=== PATIENT | female | born 1945 | race Caucasian/White ===

== ENCOUNTER 2019-04-03 06:39 | Observation (INO) | payer MEDICARE, BC ==
[2019-04-03] MEDS ORDERED: NS 0.9% 1000 ML** 1,000 ML IV ONE (06:45)
[2019-04-03 07:01] LABS: Hematocrit 35 % (35-47); Hemoglobin 11.6 g/dL (12.0-16.0); Mean Corpuscular HGB Conc 34 g/dL (31-36); Mean Corpuscular Hemoglobin 32 pg (27-31); Mean Corpuscular Volume 95 fL (80-97); Mean Platelet Volume 8.2 fL (7.4-10.4); Platelet Count 264 10^3/uL (150-450); Red Blood Count 3.66 10^6 /uL (3.70-4.87); Red Cell Distribution Width 14 % (10-15)
[2019-04-03] MEDS ORDERED: Ondansetron INJ* 2 MG/ML VIAL IV ONE (07:02)
[2019-04-03 07:09] LABS: INR 3.82 (0.82-1.09)
[2019-04-03 07:20] LABS: Albumin 3.1 g/dL (3.2-5.2); Albumin/Globulin Ratio 1.6 (1-3); BUN/Creatinine Ratio 14.5 (8-20); Calcium 8.6 mg/dL (8.6-10.3); EGFR Non-African American 42.2 (>60); Total Bilirubin 0.4 mg/dL (0.2-1.0); Total Protein 5.1 g/dL (6.4-8.9)
[2019-04-03 07:29] LABS: ABS Eosinophils 0.1 10^3/ul (0-0.6); ABS Lymphocytes 7.8 10^3/ul (1.0-4.8); ABS Monocytes 0.5 10^3/ul (0-0.8); ABS Neutrophils 2.6 10^3/ul (1.5-7.7); ABS Nucleated RBC 0.1 10^3/ul; Eosinophil % 1.3 %; Lymphocyte % 70.3 %; Nucleated Red Blood Cells % 0.6
[2019-04-03 10:26] LABS: ABS Lymphocytes 4.6 10^3/ul (1.0-4.8); ABS Monocytes 0.5 10^3/ul (0-0.8); ABS Neutrophils 5.4 10^3/ul (1.5-7.7); Eosinophil % 0.2 %; Hematocrit 33 % (35-47); Hemoglobin 11.1 g/dL (12.0-16.0); Lymphocyte % 43.6 %; Mean Corpuscular HGB Conc 34 g/dL (31-36); Mean Corpuscular Hemoglobin 32 pg (27-31); Mean Corpuscular Volume 94 fL (80-97); Mean Platelet Volume 8.2 fL (7.4-10.4); Nucleated Red Blood Cells % 0.3; Platelet Count 244 10^3/uL (150-450); Red Blood Count 3.46 10^6 /uL (3.70-4.87); Red Cell Distribution Width 13 % (10-15); White Blood Count 10.5 10^3/uL (3.5-10.8)
--- NOTE | 2019-04-03 11:10 | ED ---
Lower Extremity - HPI Summary HPI Summary: This patient is an otherwise healthy 73-year-old female presenting to the ED with severe/acute blood loss. Patient called ambulance this morning after noticing a large pool of blood on her floor coming from a medial ankle ulcer which has been present times approximately 30-40 years. Patient states she has had a graft over the area which lasted approximately 20 years. Patient has not followed up with surgery for another graft. She states the area has been bleeding more frequently now, with the last major bleed one month ago. Her and her were able to stop the bleed at home and this did not require coming to the ED or hospitalization. Patient is on Coumadin for previous blood clot and last INR 3.6. She did not hold her coumadin. On Coumadin for a DVT following childbirth 40 years ago. Has been on this medication since, as she developed a subsequent DVT in the same area. Multiple dopplers since show no changes. She has been seen at [facility] for wound care since 2009, since her ankle graft failed and her ankle continued to "bust open." She states this ended around 2012. She has seen Dr. Scott, but has not seen a surgeon. The area has worsened in the last 1 mo, with today being the worst, unable to stop bleeding. Currently on 5mg Coumadin daily. Per EMS, pt had lost approx 1-1.5L of blood. Area was not currently bleeding on EMS arrival. Pt was pale, nauseous and BP in the 80's. - History of Current Complaint Chief Complaint: EDExtremityLower Stated Complaint: ANKLE ULCER PER EMS Time Seen by Provider: 04/03/19 06:44 Hx Obtained From: Patient, Family/Top Frame Fitter Mechanism Of Injury: Other - no injury Severity Initially: Severe Severity Currently: Mild Pain Intensity: 0 Pain Scale Used: 0-10 Numeric Location: Is Discrete @ - medial L ankle with 3x1 ulcer Associated Signs And Symptoms: Positive: Dizziness. Negative: Swelling, Redness , Bruising Aggravating Factor(s): Standing - standing re-opens wound, Ambulation Able to Bear Weight: Yes - Allergies/Home Medications Allergies/Adverse Reactions: Allergies Allergy/AdvReac Type Severity Reaction Status Date / Time No Known Allergies Allergy Verified 04/03/19 07:03 PMH/Surg Hx/FS Hx/Imm Hx Previously Healthy: Yes - Immunization History Hx Pertussis Vaccination: No Immunizations Up to Date: Yes Infectious Disease History: No Infectious Disease History: Denies: Traveled Outside the [place] in Last 30 Days - Social History Occupation: Unemployed Lives: With Family Alcohol Use: None Hx Substance Use: No Substance Use Type: Reports: None Smoking Status (MU): Never Smoked Tobacco Review of Systems Positive: Fatigue. Negative: Fever, Chills, Skin Diaphoresis Negative: Palpitations, Chest Pain Negative: Shortness Of Breath, Cough Genitourinary: Negative Positive: no symptoms reported, see HPI Negative: Arthralgia, Myalgia Positive: Other - 3x1cm ulceration to the medial L ankle Neurological: Negative All Other Systems Reviewed And Are Negative: Yes Physical Exam Triage Information Reviewed: Yes Vital Signs On Initial Exam: Initial Vitals Pulse Resp BP Pulse Ox 75 27 111/83 97 04/03/19 06:43 04/03/19 06:43 04/03/19 06:43 04/03/19 06:43 Appearance: Positive: Ill-Appearing Skin: Positive: Dry, Pale Head/Face: Positive: Normal Head/Face Inspection Eyes: Positive: EOMI, Conjunctiva Clear Neck: Positive: Supple Respiratory/Lung Sounds: Positive: Clear to Auscultation, Breath Sounds Present Cardiovascular: Positive: Tachycardia Musculoskeletal: Positive: Normal, Strength/ROM Intact Neurological: Positive: Speech Normal Psychiatric: Positive: Normal, Affect/Mood Appropriate AVPU Assessment: Alert Procedures - Sedation Patient Received Moderate/Deep Sedation with Procedure: No Diagnostics - Vital Signs Vital Signs Temp Pulse Resp BP Pulse Ox 04/03/19 10:57 97.3 F 90 19 131/76 95 04/03/19 10:43 81 17 131/76 93 04/03/19 10:13 74 16 115/65 95 04/03/19 10:00 77 20 95 04/03/19 09:44 78 18 105/50 93 04/03/19 09:13 71 17 122/76 95 04/03/19 09:00 70 21 96 04/03/19 08:43 68 14 108/58 94 04/03/19 08:13 72 17 112/60 92 04/03/19 08:00 70 18 90 04/03/19 07:43 71 19 115/77 99 04/03/19 07:14 77 13 140/91 100 04/03/19 07:00 77 20 100 04/03/19 06:56 97.5 F 04/03/19 06:48 80 20 97 04/03/19 06:44 0 F 78 14 111/83 97 04/03/19 06:43 75 27 111/83 97 - Laboratory Lab Results: Lab Results 04/03/19 04/03/19 04/03/19 Range/Units 06:52 06:53 06:53 WBC 11.0 H (3.5-10.8) 10^3/uL RBC 3.66 L (3.70-4.87) 10^6 /uL Hgb 11.6 L (12.0-16.0) g/dL Hct 35 (35-47) % MCV 95 (80-97) fL MCH 32 H (27-31) pg MCHC 34 (31-36) g/dL RDW 14 (10-15) % Plt Count 264 (150-450) 10^3/uL MPV 8.2 (7.4-10.4) fL Neut % (Auto) 23.6 % Lymph % (Auto) 70.3 % Barber % (Auto) 4.3 % Eos % (Auto) 1.3 % Baso % (Auto) 0.5 % Absolute Neuts (auto) 2.6 (1.5-7.7) 10^3/ul Absolute Lymphs (auto) 7.8 H (1.0-4.8) 10^3/ul Absolute Monos (auto) 0.5 (0-0.8) 10^3/ul Absolute Eos (auto) 0.1 (0-0.6) 10^3/ul Absolute Basos (auto) 0.0 (0-0.2) 10^3/ul Absolute Nucleated RBC 0.1 10^3/ul Nucleated RBC % 0.6 Hem Pathologist Commnt Pending INR (Anticoag Therapy) 3.82 H (0.82-1.09) APTT 44.0 H (26.0-38.0) seconds Sodium 142 (135-145) mmol/L Potassium 4.0 (3.5-5.0) mmol/L Chloride 112 H (101-111) mmol/L Carbon Dioxide 24 (22-32) mmol/L Anion Gap 6 (2-11) mmol/L BUN 18 (6-24) mg/dL Creatinine 1.24 H (0.51-0.95) mg/dL Est GFR ( Amer) 51.0 (>60) Est GFR (Non-Af Amer) 42.2 (>60) BUN/Creatinine Ratio 14.5 (8-20) Glucose 172 H (70-100) mg/dL Calcium 8.6 (8.6-10.3) mg/dL Total Bilirubin 0.40 (0.2-1.0) mg/dL AST 13 (13-39) U/L ALT 9 (7-52) U/L Alkaline Phosphatase 50 (34-104) U/L Total Protein 5.1 L (6.4-8.9) g/dL Albumin 3.1 L (3.2-5.2) g/dL Globulin 2.0 (2-4) g/dL Albumin/Globulin Ratio 1.6 (1-3) Blood Type Antibody Screen 04/03/19 04/03/19 Range/Units 06:53 10:19 WBC 10.5 (3.5-10.8) 10^3/uL RBC 3.46 L (3.70-4.87) 10^6 /uL Hgb 11.1 L (12.0-16.0) g/dL Hct 33 L (35-47) % MCV 94 (80-97) fL MCH 32 H (27-31) pg MCHC 34 (31-36) g/dL RDW 13 (10-15) % Plt Count 244 (150-450) 10^3/uL MPV 8.2 (7.4-10.4) fL Neut % (Auto) 51.1 % Lymph % (Auto) 43.6 % Barber % (Auto) 4.9 % Eos % (Auto) 0.2 % Baso % (Auto) 0.2 % Absolute Neuts (auto) 5.4 (1.5-7.7) 10^3/ul Absolute Lymphs (auto) 4.6 (1.0-4.8) 10^3/ul Absolute Monos (auto) 0.5 (0-0.8) 10^3/ul Absolute Eos (auto) 0.0 (0-0.6) 10^3/ul Absolute Basos (auto) 0.0 (0-0.2) 10^3/ul Absolute Nucleated RBC 0.0 10^3/ul Nucleated RBC % 0.3 Hem Pathologist Commnt INR (Anticoag Therapy) (0.82-1.09) APTT (26.0-38.0) seconds Sodium (135-145) mmol/L Potassium (3.5-5.0) mmol/L Chloride (101-111) mmol/L Carbon Dioxide (22-32) mmol/L Anion Gap (2-11) mmol/L BUN (6-24) mg/dL Creatinine (0.51-0.95) mg/dL Est GFR ( Amer) (>60) Est GFR (Non-Af Amer) (>60) BUN/Creatinine Ratio (8-20) Glucose (70-100) mg/dL Calcium (8.6-10.3) mg/dL Total Bilirubin (0.2-1.0) mg/dL AST (13-39) U/L ALT (7-52) U/L Alkaline Phosphatase (34-104) U/L Total Protein (6.4-8.9) g/dL Albumin (3.2-5.2) g/dL Globulin (2-4) g/dL Albumin/Globulin Ratio (1-3) Blood Type B Positive Antibody Screen Negative Result Diagrams: 04/03/19 10:19 04/03/19 06:53 Lab Statement: Any lab studies that have been ordered have been reviewed, and results considered in the medical decision making process. Re-Evaluation - Re-Evaluation First Eval Change: Improved - pt feeling better physically, wound opened and continues to bleed when dependent Second Eval Change: Worse - re-wrapped with coban, surgicel and TXA - re-opened and bled 100cc's Third Eval Change: Improved - with elevation - no bleeding present Lower Extremity Course/Dx - Course Course Of Treatment: On arrival into the ED, the patient appears ill. States she feels nauseous, is very pale, but still alert and oriented. Arrival into the ED, temp was obtained and continues to be orally and temporarily hovering at 85. Rectal temp shows 97.5. She was warmed with blankets. Medial ankle shows a 3 cm in length and approximately 1 cm in width ulceration which is not currently bleeding. .3-.4cm depth. Occlusive gauze wrapped and coban applied. Recheck after 2 hours, continues not to bleed. Pt up to the bathroom, and approximately 100cc out of the wound. Quickly redressed and TXA with surgicel applied gauze and coban wrapped. Discussed with attendings Dr. Mcdaniel and Dr. Key. Recommended recheck and occlusive gauze with a recheck in 30 minutes after tight wrap. Immediately, when patient becomes dependent, the wound begins to bleed. Only ceases with elevation of the extremity. Patient concern for going home as she continues to have bleeding if dependent. Patient was given 2 L fluids and labs obtained. Labs show an H&H of 3.66 and 11.6 respectively. Patient continued to improve hemodynamically over the course of several hours and feels much better physically. H&H was rechecked at a 4 hour sinai which shows an H&H of 3.46 at 11.1. This with no significant drop. Patient is feeling well. However, d/t continuing bleeding, admission was recommended. Vitamin K ordered. - Diagnoses Differential Diagnosis/HQI/PQRI: Positive: Osteomyelitis, Other Provider Diagnoses: Bleeding from wound, Foot ulcer - Physician Notifications Discussed Care Of Patient With: Daniela Schaffer Instructed by Provider To: Admit As Inpatient - Critical Care Time Critical Care Time: 30-74 min Discharge ED - Sign-Out/Discharge Documenting (check all that apply): Patient Departure - Discharge Plan Condition: Stable Disposition: ADMITTED TO [facility] Referrals: Santi Scott MD [Medical Doctor] - No Primary Care Phys,NOPCP [Primary Care Provider] - Donte Guerra MD [Medical Doctor] - Additional Instructions: Please follow up with your PCP promptly Return to the ED for any bleeding - Billing Disposition and Condition Condition: STABLE Disposition: Admitted to [facility]
[2019-04-03] MEDS ORDERED: Tranexamic Acid 1,000 MG/10 ML SDV TOPICAL ONE (11:34)
[2019-04-03] MEDS ORDERED: Phytonadione IV (Adult)* 10 MG/ML 1 ML AMP IV ONE (12:54)
[2019-04-03] MEDS ORDERED: Al Hydrox/Mg Hydrox/Simet LIQ* 30 ML UDC PO PRN (13:28)
[2019-04-03] MEDS ORDERED: Acetaminophen TAB* 325 MG PO PRN (13:28)
[2019-04-03] MEDS ORDERED: Phytonadione IV (Adult)* 5 MG in NS 0.9% 50 ML* 50 ML IV ONE (13:45)
--- NOTE | 2019-04-03 15:39 | HP ---
CC: NANCI Miranda; Dr. Huston * HISTORY AND PHYSICAL: DATE OF ADMISSION: 04/03/19 PRIMARY CARE PROVIDER: NANCI Miranda. CHIEF COMPLAINT: Left leg ulcer bleeding. 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 The patient stated that sometime in the , the skin graft "did not work anymore". Since then, she has had a chronic wound there that was last seen by a provider in 2012 by wound care in [facility]. The patient states that since then she has been taking care of it herself. Sometimes, it was open, but it never appeared to be infected and she never had any major issues with that wound. Due to her history of recurrent DVTs, she had been also on Coumadin ever since . She had been on a dose of 5 mg daily of Coumadin for several years, but in the past month, it was noted that her INR was around 1.5 and her Coumadin dose was increased to 7.5 mg dose once weekly in addition to 5 mg doses all the other remaining days of the week. Once her dose was increased, her INR went up to 3.5 a week ago and at that point , her Coumadin dosing was adjusted back to 5 mg daily. Despite that, 3 days after the adjustment of the Coumadin dose, the patient's INR is still supratherapeutic and is slightly higher. The patient states that in the morning , she was dabbing her left foot ulcer, started bleeding uncontrollably. By the EMT providers, the patient had a "liter of blood" on the floor when they arrived. She came in to the ED for evaluation. Here, she had a compressive dressing applied. She was observed, appears to feel back to her baseline with not really remarkable blood work and she was about to go home but when she stood up, her bleeding from her left foot ulcer recurred. That had to be re- dressed with a pressure dressing again and at that point, the ED provider asked medicine service to come and see the patient for evaluation or admission. The patient is going to be placed on overnight observation with diagnosis of bleeding left foot ulcer. PAST MEDICAL HISTORY: 1. Recurrent DVT of the left leg. 2. Left medial malleolus venous stasis ulcer status post skin graft that failed several years ago and chronic wound afterwards. 3. Status post right inguinal hernia repair. 4. History of peripheral vascular disease. 5. History of recurrent DVTs, currently on Coumadin. MEDICATIONS: Coumadin 5 mg daily. ALLERGIES: No known drug allergies. SOCIAL HISTORY: The patient has history of smoking most of her adult life, she quit in 2001. She smoked a pack per day for over 30 years. She denies any alcohol or drug use. She is retired, lives with her who is her surrogate. FAMILY HISTORY: Positive for mother who in her 70s of [place], but also had a history of bone cancer and father who at the age of 67 secondary to leukemia. REVIEW OF SYSTEMS: Please see history of present illness. In addition to the above mentioned, the patient denies specifically any problems with skin infection and the wound recently draining. She denies any problems with weight gain or loss and no recent illnesses were reported. All the remaining 12 systems were reviewed with the patient and were otherwise negative. PHYSICAL EXAMINATION GENERAL: The patient is a pleasant 73-year-old female who is in no acute distress. The patient alert and oriented x3. VITAL SIGNS: Blood pressure of 124/68, heart rate of 118 and regular, respiratory rate 19, oxygen saturation 93% on room air, temperature 97.3. HEENT: Head: Atraumatic, normocephalic. Eyes: Pupils are equal, reactive to light and accommodation. Oropharynx clear. Mucosa moist. NECK: Supple. No JVD. No bruits bilaterally. RESPIRATORY: Clear to auscultation bilaterally. CARDIOVASCULAR: Regular rate and rhythm. No murmur. ABDOMEN: Soft, nontender. Bowel sounds present in all 4 quadrants. EXTREMITIES: There is no edema. Pulses are +1 bilaterally. There is no clubbing, no cyanosis. The left foot is wrapped in compression dressings that were not removed for the evaluation due to the patient just re-bleeding within minutes prior to my evaluation and the dressing being reapplied by the ED provider. As the ED provider's description, the wound is crescent like, overlying the left medial malleolus approximately 4 cm in length, not infected, actively bleeding. NEURO EVALUATION: Speech clear. Cranial nerves II through XII grossly intact. Motor strength is 5/5 bilaterally. LABORATORY DATA: White blood cell count of 10.5, hemoglobin 11.1, hematocrit 33 , and platelets 244. INR 3.8. Sodium 142, potassium 4.0, chloride 112, carbon dioxide 24, BUN 18, creatinine 1.24. Liver function tests were unremarkable. ASSESSMENT AND PLAN: 1. A 73-year-old female with history of peripheral vascular disease and recurrent deep vein thromboses who has now supratherapeutic INR and uncontrollably bleeding ulcer in the left foot. At this point, the bleeding appears to have been controlled after the dressing was reapplied by the ED provider. The patient is going to be placed on overnight observation to observe for recurrent bleeding. I am unsure if the patient has suffered significant blood loss because I do not have any medical records of the patient' s recent CBC. Her hemoglobin is slightly lower than normal. Due to active bleeding, the patient's INR is going to be reversed with vitamin K IV and that already was ordered in the ED. I will continue the dressing until tomorrow morning when we remove it for reevaluation. We will also obtain another INR in the morning. At this point, it would be great if the INR is at 2 or below 2. I had also discussed with the patient that we will hold Coumadin for tomorrow and to restart it on Thursday with a dose of 5 mg daily. 2. For DVT prophylaxis, as mentioned above, the patient has supratherapeutic INR at this point and uncontrollable bleeding. 3. The patient's code status is full. Her surrogate is her . TIME SPENT: Approximately 62 minutes was spent on admission of this patient, more than half of that time was spent [id number] with the patient during the interview and physical exam. [id number]/[facility] #: [id number] [facility] MEDICAL CENTERBalta
[2019-04-04 06:34] LABS: INR 1.35 (0.82-1.09)
[2019-04-04 13:02] VITALS: BP 154/79
--- NOTE | 2019-04-04 21:03 | DS ---
DISCHARGE SUMMARY: DATE OF ADMISSION: 04/03/19 DATE OF DISCHARGE: 04/04/19 ADMITTING PHYSICIAN: Dr. Schaffer.* (DICTATED BY IZABEL ROD NP) PRIMARY CARE PROVIDER: Dr. Huston. PRIMARY DIAGNOSIS: Supratherapeutic international normalized ratio with associated bleeding of left lower extremity ulcer. SECONDARY DIAGNOSES: 1. History of peripheral vascular disease. 2. History of recurrent deep venous thrombosis, currently on Coumadin. 3. Left medial malleolar venous stasis ulcer, status post skin graft that failed several years ago and is now chronic wound. 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 Due to her history of recurrent DVTs, she has also been on Coumadin ever since the . She had been on a dose of 5 mg of Coumadin daily for several years but in this past month, it was noted that her INR was around 1.5 and her Coumadin dose was increased to 7.5 mg once weekly in addition to the usual 5 mg doses. Once her dose was increased, her INR went up to 3.5 a week ago and at that point, she was adjusted back to the 5 mg dose daily. Despite that, 3 days after the adjustment of the Coumadin dosage, the patient's INR is still supratherapeutic. While she was at home, she was stabbing her left foot ulcer and then it started bleeding uncontrollably. She states that she applied pressure and ice, but this did not help stop the bleeding and she called EMS to be brought to the emergency department. While in the emergency department, she received a L of fluid and she also received a dose of vitamin K IV and she was given tranexamic acid 1000 mg per 10 mL topically to the area. It sounds as if she was going to go home but when she stood up, the bleeding continued which was readdressed with a pressure dressing and at that point, the ED provider asked Hospital Medicine to please evaluate the patient for admission. The patient was then admitted under observation to the medical floor. Today, the patient denies any lightheadedness, nosebleeds, headaches, chest pain or tightness, shortness of breath, nausea, vomiting, diarrhea. She has no other concerns at this time. PERTINENT LAB DATA: Last H and H noted to be 11.1 and 33, red blood cells 3.45 , white blood cells 10.5, MCH 32, platelet count 244. INR from 04/03/19 shows 3.82. INR from 04/04/19 this morning, drawn at 06:09 shows 1.35. Chemistry from 04/03/19: Sodium 142, potassium 4.0, chloride 112, carbon dioxide 24, anion gap 6, BUN 18, creatinine 1.24. Estimated GFR 42.2. BUN and creatinine ratio 14.5. Glucose 172. Calcium 8.6. Total bili 0.4, AST 13, ALT 9, alk phosphatase 50, total protein 5.1, albumin 3.1. Chest x-ray, impression, stated as COPD. No active cardiopulmonary disease. X-ray of left ankle, impression, osteopenia. No appreciable erosion or periosteal reaction. Plain radiograph findings of osteomyelitis are relatively late findings. There is persistent clinical concern for osteomyelitis. Recommend correlation with followup imaging, three-phase phone scanning, white blood cells scan, and/or MRI of the affected region. EKG showed sinus rhythm, normal P axis, right bundle-branch block. PHYSICAL EXAMINATION: Vital Signs: Temp 97.9, heart rate 72, respiratory rate 18, O2 sat 95% on room air, blood pressure 127/59. The patient able to move around in bed, appears to be in no acute distress. HEENT: No scleral icterus. PERRL. Mucous membranes moist. Cardiovascular: Heart rate regular. S1, S2 present. No murmurs, rubs, or gallops. Extremities: No edema. Respiratory: Lung sounds clear throughout bilaterally. Normal respiratory effort. GI: Bowel sounds x4. Abdomen: Soft, nontender. Musculoskeletal: Range of motion and strength within normal limits to all extremities. Skin: Wound noted to left medial malleolar area. No active bleeding noted. No surrounding erythema or warmth. Wound bed pink. Neuro: Alert and oriented x3. Able to sense light touch to bilateral feet. Psych: Responds appropriately. Normal affect. DISCHARGE PLAN: Diet: She will continue with her usual diet. Will be educated by nursing staff on implications of diet and Coumadin usage. Activity: Increase to baseline activity level as tolerated. Precautions: Should return to the emergency department with any signs of increased bleeding. Call 911 with any chest pain or unusual shortness of breath. Hyper-therapeutic INR with associated left lower extremity ulcer bleeding. This seems to have resolved. She will continue her usual dosage of Coumadin while at home. Continue with pressure dressings. Anemia due to acute blood loss. She can follow up with her primary care provider. History of recurrent DVTs. Again, will continue with usual Coumadin dosing and will follow up with primary care. Left lower extremity ulcer. She will be following up with the [facility] [place]. MEDICATIONS AT DISCHARGE: 1. Acetaminophen 650 mg p.o. q.4 hours p.r.n. 2. Maalox Plus 30 mL p.o. q.6 hours p.r.n. 3. Coumadin 5 mg p.o. daily. CONDITION ON DISCHARGE: Stable. DISPOSITION: Home. TIME SPENT: Approximately 60 minutes was spent on this discharge with at least half of that being [id number] with the patient. This plan has been reviewed with Dr. Schaffer and she agrees with the plan. IZABEL ROD NP [id number]/[facility] #: [id number]
== END 2019-04-04 14:00 | disposition home or self-care (01) ==
LOC: ED 06:39 → MED 13:28
PROVIDERS: ADMIT Internal Medicine; ATTEND Internal Medicine
DX: L97.328 Non-pressure chronic ulcer of left ankle with other specified severity (principal); I73.9 Peripheral vascular disease, unspecified; Z86.718 Personal history of other venous thrombosis and embolism; Z79.01 Long term (current) use of anticoagulants; M85.872 Other specified disorders of bone density and structure, left ankle and foot; R94.31 Abnormal electrocardiogram [ECG] [EKG]; R42 Dizziness and giddiness
CPT/HCPCS: 36415; 71045; 80053; 85025; 85060; 85610; 85730; 86850; 86900; 86901; 93005; 96365; 96375; 99283; G0378; J2405; J3430